=== PATIENT | male | born 1990 | race Caucasian/White ===

== ENCOUNTER 2018-06-03 12:55 | Emergency (ER) | payer MEDICARE, OTHER ==
[~2018-06-03] VITALS: Ht 182.9 cm; Wt 72.6 kg
[~2018-06-03 12:55] MED LIST: CLON.2 PO; CLON.5 PO; HYDACE5 PO; METPHE20 PO; OLAN2.5 PO; RISP3 PO; TRAZ50 PO
[2018-06-03] MEDS ORDERED: OXYB5 PO (13:03)
[2018-06-03] MEDS ORDERED: HYDPAM50 PO (13:04)
[2018-06-03] MEDS ORDERED: Norco 5-325 Ta1 EACH PO (14:00)
[2018-06-03] MEDS ORDERED: Keflex500 MG PO (14:00)
== END 2018-06-03 15:10 | disposition home or self-care (01) ==
LOC: ER 12:55
DX: S68.127A Partial traumatic metacarpophalangeal amputation of left little finger, initial encounter (principal); S61.317A Laceration without foreign body of left little finger with damage to nail, initial encounter; Z23 Encounter for immunization; F90.9 Attention-deficit hyperactivity disorder, unspecified type; Z79.899 Other long term (current) drug therapy; W23.0XXA Caught, crushed, jammed, or pinched between moving objects, initial encounter
CPT/HCPCS: 12001; 73130; 90471; 90714; 96372; 99283-25; J0690